=== PATIENT | female | born 1995 | race Caucasian/White ===

== ENCOUNTER 2017-03-11 13:35 | Emergency (ER) | payer SELFPAY ==
--- NOTE | 2017-03-11 14:21 | ER NURSING DOCUMENTATION ---
Nurse's Notes [facility] Name:Adilia Kenny Age:21 yrs Sex:Female :1995 Arrival Date:03/11/2017 Time:13:35 Bed2 Private MD: Diagnosis:Pharyngitis - Tonsillitis Presentation: 03/11 13:39 Acuity: MADI 3 lp 13:42 Presenting complaint: Patient states: bite by mouse yesterday. Transition of care: cb Home. Notified ED Physician of patient's arrival and CC Dr. Judge notified. 13:42 Method Of Arrival: Private Vehicle cb Triage Assessment: 13:44 General: Appears in no apparent distress, well groomed, Behavior is cooperative. Pain: cb Denies pain. 13:47 EENT: No deficits noted. Neuro: Level of Consciousness is awake, alert, Oriented to cb person, place, time, event. Cardiovascular: Capillary refill < 3 seconds. Respiratory: Airway is patent Trachea midline Respiratory effort is even, unlabored, Respiratory pattern is regular, symmetrical. GI: Reports tolerance of fluids, tolerance of food. : No deficits noted. Derm: Skin very small puncture wound on R hand of 5th digit bite from mouse. Musculoskeletal: No deficits noted. Historical: - Allergies: No known drug Allergies; - Home Meds: 1. OTC cold medicine - PMHx: None; - PSHx: None; - Tetanus: > 10 years. - Ebola Screening: : Patient negative for fever greater than or equal to 101.5 degrees Fahrenheit, and additional compatible Ebola Virus Disease symptoms. Patient denies exposure to infectious person. Patient denies travel to an Ebola-affected area in the 21 days before illness onset. No symptoms or risks identified at this time. . - Immunization history: Unable to Obtain. - Social history: Smoking status: Patient states was never smoker of tobacco. Screenin:19 Infectious Disease Risk None. Abuse screen: Denies threats or abuse. Denies injuries lp from another. Nutritional screening: No deficits noted. Assessment: 14:19 See Triage Assessment done by same RN. Respiratory: Airway is patent Trachea midline lp Respiratory effort is even, unlabored, Respiratory pattern is regular, symmetrical, Breath sounds are clear bilaterally. Derm: No deficits noted. Vital Signs: 13:42 BP 132 / 81; Pulse 106; Resp 17; Temp 99.1(TE); Pulse Ox 98% on R/A; Weight 55 kg; rh Height 5 ft. 6 in. (168 cm); Pain 0/10; 13:42 Body Mass Index 19.49 (55.00 kg, 168 cm) rh ED Course: 13:39 Patient arrived in ED. 13:39 Triage completed. lp 13:41 Zeenat Leblanc, RN is Primary Nurse. cb 14:09 Jim Judge MD is Attending Physician. cd 14:[address] Judge notified. lp 14:19 Valuables Remains with patient Patient has correct armband on for positive lp identification. Placed in gown. Bed in low position. Administered Medications: No medications were administered Outcome: 14:13 Discharge ordered by . cd 14:20 Discharged to home ambulatory. lp 14:20 Condition: good 14:20 Instructed on discharge instructions, follow up and referral plans. medication usage. 14:20 Patient left the ED. lp 07 14:28 Discharge F/U Call: Unable to reach: no answer st Signatures: Zeenat Leblanc, RN RN Maria Isabel Caballero RN RN Callie Gordon RN RN Jim Rendon MD MD cd Hofsess, Rachel rh Lietz, Jeff jl
--- NOTE | 2017-03-11 14:21 | ER PHYSICIAN DOCUMENTATION ---
Physician Documentation [facility] Name:Adilia Kenny Age:21 yrs Sex:Female :1995 Arrival Date:03/11/2017 Time:13:35 Bed2 Private MD: Jim Leon Disposition: 03/11/17 14:13 Discharged to Home/Self Care. Impression: Pharyngitis - Tonsillitis. - Condition is Good. - Discharge Instructions: PHARYNGITIS, Strep (Presumed). - Prescriptions for Amoxicillin 500 mg Oral Capsule - take 1 capsule by ORAL route every 8 hours for 10 days; 30 tablet. - Medical Reconciliation form form. - Follow up: Private Physician; When: 7 - 10 days; Reason: Recheck today's complaints, Continuance of care. - Problem is new. - Symptoms have improved. - Notes: Take Ibuprofen 600mg by mouth every 6 hours for 2 days Take Tylenol 500mg by mouth every 6 hours for 2 days. Take Amoxil 500mg by mouth every 8 hours for 10 days. Drink 2 - 3 quarts of water every day. Keep mouse wound clean and dry. HPI: 03/11 13:40 This 21 yrs old Female presents to ER via Private Vehicle with complaints of cd Fever, Animal Bite. 13:40 The patient reports fever, not measured (subjective). Onset: The symptom(s)/episode cd began/occurred acutely, 3 day(s) ago, before the minor mouse bite. Modifying factors: Interventions used to treat fever include with [place] medication. Associated signs and symptoms: Pertinent positives: runny nose, sinus congestion, sore throat, rhinorrhea, Pertinent negatives: abdominal pain, altered mental status, arthralgias, chills, diarrhea, earache, headache, shortness of breath, vomiting. Severity of symptoms: At their worst the symptoms were mild in the emergency department the symptoms are unchanged. Historical: - Allergies: No known drug Allergies; - Home Meds: 1. OTC cold medicine - PMHx: None; - PSHx: None; - Tetanus: > 10 years. - Ebola Screening: : Patient negative for fever greater than or equal to 101.5 degrees Fahrenheit, and additional compatible Ebola Virus Disease symptoms. Patient denies exposure to infectious person. Patient denies travel to an Ebola-affected area in the 21 days before illness onset. No symptoms or risks identified at this time. . - Immunization history: Unable to Obtain. - Social history: Smoking status: Patient states was never smoker of tobacco. ROS: 13:45 Neck: Negative for injury, pain, stiffness and swelling. cd Respiratory: Negative for shortness of breath, dyspnea on exertion, cough, sputum production, wheezing, hemoptysis and pleuritic chest pain. Skin: Negative for injury, rash, itching and discoloration. 13:45 Neuro: Negative for headache, weakness, numbness, tingling, and seizure. cd 13:45 Constitutional: Positive for fever, poor PO intake, Negative for body aches, chills. 13:45 ENT: Positive for rhinorrhea, sinus congestion, sore throat, Negative for ear pain, sinus pain. Exam: Head/Face: Normocephalic, atraumatic. Eyes: Pupils equal round and reactive to light, extra-ocular motions intact. Lids and lashes normal. Conjunctiva and sclera are non-icteric and not injected. Cornea within normal limits. Periorbital areas with no swelling, redness, or edema. Neck: Trachea midline, no thyromegaly or masses palpated, and no cervical lymphadenopathy. Supple, full range of motion without nuchal rigidity, or vertebral point tenderness. No Meningismus. Respiratory: Lungs have equal breath sounds bilaterally, clear to auscultation and percussion. No rales, rhonchi or wheezes noted. No increased work of breathing, no retractions or nasal flaring. 13:45 Neuro: Awake and alert, GCS 15, oriented to person, place, time, and situation. cd Cranial nerves II-XII grossly intact. Motor strength 5/5 in all extremities. Sensory grossly intact. Cerebellar exam normal. Normal gait. 13:45 Constitutional: The patient appears alert, awake, non-diaphoretic, non-toxic, anxious. 13:45 Skin: Appearance: normal except for affected area, injury, bite(s), superficial, on finger, no signs of cellulitis. Vital Signs: 13:42 BP 132 / 81; Pulse 106; Resp 17; Temp 99.1(TE); Pulse Ox 98% on R/A; Weight 55 kg; rh Height 5 ft. 6 in. (168 cm); Pain 0/10; 13:42 Body Mass Index 19.49 (55.00 kg, 168 cm) rh MDM: 13:45 Data reviewed: vital signs, nurses notes, old medical records, and as a result, I will cd discharge patient. Data interpreted: Pulse oximetry: on room air is 98 %. Interpretation: normal. 14:09 Patient medically screened. cd 14:09 Counseling: I had a detailed discussion with the patient and/or guardian regarding: the cd historical points, exam findings, and any diagnostic results supporting the discharge/admit diagnosis, the need for outpatient follow up, for a recheck, with the patient's primary care provider, to return to the emergency department if symptoms worsen or persist or if there are any questions or concerns that arise at home. 03/11 14:33 Order name: RAPID STREP SCRN CUL IF NEG EDMS 03/12 08:12 Order name: THROAT FOR BETA STREP EDMS Dispensed Medications: No medications were administered Signatures: Zeenat Leblanc RN RN cb Pavlish, Lena, RN RN lp Daley, Chris, MD MD cd
== END 2017-03-11 14:21 | disposition home or self-care (01) ==
LOC: ER 13:35
DX: J03.90 Acute tonsillitis, unspecified (principal); J02.9 Acute pharyngitis, unspecified; R50.9 Fever, unspecified; S60.476A Other superficial bite of right little finger, initial encounter; W53.01XA Bitten by mouse, initial encounter
CPT/HCPCS: 86403; 87081; 99281